=== PATIENT | female | born 1970 | race Caucasian/White ===

== ENCOUNTER → 2024-05-31 08:26 | Outpatient (REF) | payer BC, SELFPAY | LOC: HWWDC 08:26 | PROVIDERS: ATTENDING PHYSICIAN Family Medicine | DX: Z12.31 Encounter for screening mammogram for malignant neoplasm of breast (principal) | CPT/HCPCS: 77063; 77067 ==

== ENCOUNTER → 2024-06-21 10:56 | Outpatient (REF) | payer BC, SELFPAY | LOC: WDC 10:56 | PROVIDERS: ATTENDING PHYSICIAN Family Medicine | DX: R92.343 Mammographic extreme density, bilateral breasts (principal) | CPT/HCPCS: 76641 ==

== ENCOUNTER → 2024-06-23 14:28 | Outpatient (REF) | payer BC, SELFPAY | LOC: HWRAD 14:28 | PROVIDERS: ATTENDING PHYSICIAN Family Medicine | DX: D17.22 Benign lipomatous neoplasm of skin and subcutaneous tissue of left arm (principal) | CPT/HCPCS: 76882 ==

== ENCOUNTER 2024-12-08 06:11 | Day surgery (SDC) | payer BC, SELFPAY ==
[2024-12-08] VITALS (7 sets, daily range): BP systolic 105–131; BP diastolic 64–89; BMI 24.1
[2024-12-08] MEDS: TYLENOL 1000 MG PO (06:56)
[2024-12-08] MEDS: NORMOSOL-R/PLASMALYTE-A 1000 IV (06:56)
--- NOTE | 2024-12-08 09:06 | PTCARENOTE ---
Patients dressing orders clarified for discharge by Dr. Evans. Will monitor patient.
== END 2024-12-08 09:07 | disposition home or self-care (01) ==
LOC: SDS 06:11
PROVIDERS: ATTENDING PHYSICIAN Surgery
DX: D17.22 Benign lipomatous neoplasm of skin and subcutaneous tissue of left arm (principal); Z87.2 Personal history of diseases of the skin and subcutaneous tissue
CPT/HCPCS: 24071; 88304